=== PATIENT | female | born 1990 | race African-American/Black ===

== ENCOUNTER 2017-11-05 02:05 | Emergency (ER) | payer OTHER ==
[~2017-11-05] VITALS: Ht 167.6 cm; Wt 136.1 kg
[~2017-11-05 02:05] MED LIST: COLACE 100 MG100 MG; DERMOPLAST SPRA56 ML; HYDROCORTISONE 01 OZ; IBUPROFEN 400400 M1; IRON325; PRENATAL; TUCKS MEDICATE1 EAC1; ZOFRAN4 MG
[2017-11-05 02:58] LABS: URINE BILIRUBIN 1+ (Negative); URINE BLOOD NEGATIVE (Negative); URINE CLARITY CLEAR; URINE COLOR YELLOW; URINE GLUCOSE-RANDOM* NEGATIVE (Negative); URINE KETONES TRACE (Negative); URINE NITRITE-REFLEX NEGATIVE (Negative); URINE PROTEIN (DIPSTICK) TRACE (Negative); URINE SPECIFIC GRAVITY >= 1.030 (1.005-1.035); URINE UROBILINOGEN 0.2 E.U./dl (0.2-1.0)
[2017-11-05 03:03] LABS: ICTOTEST (BILI CONFIRMATORY) Positive (Negative); URINE LEUKOCYTES-REFLEX 1+ (Negative)
[2017-11-05 03:10] LABS: BACTERIA-REFLEX 1-9 Few /HPF (None Seen); CASTS None Seen /LPF (None Seen); CRYSTALS None Seen /LPF (None Seen); MUCUS 0-3 Light strn/LPF (None Seen); SQUAMOUS >10 Many /LPF (0-3); URINE RBC 0-2 Rare /HPF (0-2)
[2017-11-05 03:11] LABS: URINE WBC-REFLEX 6-15 Few /HPF (0-5)
[2017-11-05 04:15] LABS: ABSOLUTE NEUTROPHILS 7.1 thou/uL (1.4-8.2); BASOPHILS 0.8 % (0.0-2.0); HEMATOCRIT 35.5 % (37.0-47.0); HEMOGLOBIN 11.5 gm/dL (12.0-15.0); LYMPHOCYTES 19.4 % (24.0-44.0); MCH 26.5 pg (26.0-34.0); MCHC 32.5 g/dL (28.0-37.0); MCV 81.7 fL (80.0-100.0); MONOCYTES 6.9 % (1.0-8.0); PLATELET COUNT 281 thou/uL (150-400); POLYS 71.9 % (36.0-66.0); RBC 4.35 mil/uL (4.20-5.00); RDW 14.3 % (10.5-14.5); WBC 9.9 thou/uL (4.0-11.0)
[2017-11-05 04:17] LABS: CALCIUM 9.3 mg/dL (8.5-10.1); CREATININE 0.9 mg/dL (0.6-1.0); POTASSIUM 3.1 mmol/L (3.5-5.1)
[2017-11-05 04:23] LABS: ALBUMIN 3.4 g/dL (3.4-5.0); TOTAL BILIRUBIN 0.3 mg/dL (<0.1-1.0); TOTAL PROTEIN 7.6 g/dL (6.4-8.2)
[2017-11-05] MEDS ORDERED: KEFLEX500 M1 PO (05:07)
== END 2017-11-05 05:34 | disposition home or self-care (01) ==
LOC: ER 02:05
PROVIDERS: Emergency Medicine
DX: O23.11 Infections of bladder in pregnancy, first trimester (principal); E87.6 Hypokalemia; Z3A.00 Weeks of gestation of pregnancy not specified